=== PATIENT | female | born 1960 | race Caucasian/White ===

== ENCOUNTER 2016-08-11 07:52 | Emergency (ER) | payer BC ==
[~2016-08-11] VITALS: Ht 165.1 cm; Wt 56.7 kg
[2016-08-11] MEDS ORDERED: ZITHROMAX250 MG PO (09:24)
== END 2016-08-11 09:42 | disposition home or self-care (01) ==
LOC: ED 07:52
DX: J40 Bronchitis, not specified as acute or chronic (principal); F17.200 Nicotine dependence, unspecified, uncomplicated; Z90.710 Acquired absence of both cervix and uterus; Z98.890 Other specified postprocedural states; Z88.0 Allergy status to penicillin

== ENCOUNTER 2017-07-06 16:17 | Emergency (ER) | payer BC ==
[~2017-07-06] VITALS: Ht 165.1 cm; Wt 61.2 kg
[~2017-07-06 16:17] MED LIST: ZITHROMAX250 MG PO
[2017-07-06 17:01] LABS: HEMATOCRIT 37.3 % (37.0-47.0); HEMOGLOBIN 12.3 g/dl (12.0-16.0); MEAN CELL VOLUME 98.2 fl (81.0-99.0); MEAN CORPUSCULAR HGB 32.4 pg (27.0-31.0); MEAN PLATELET VOLUME 9.1 fl (9.6-12.3); PLATELET COUNT AUTOMATED 293 10*3/uL (130-400); RED CELL DISTRI WIDTH 13.2 % (0-14.5); WHITE BLOOD COUNT 18.2 10*3/uL (4.8-10.8)
[2017-07-06 17:15] LABS: ALBUMIN 3.7 gm/dl (3.1-4.5); ALKALINE PHOSPHATASE 115 U/L (45-117); BUN 12 mg/dl (7-24); CHLORIDE 106 mmol/L (98-107); CREATININE 1.02 mg/dL (0.55-1.02); POTASSIUM 4.1 mmol/L (3.5-5.1); SGOT/AST 15 IU/L (3-35); SGPT/ALT 17 U/L (12-78); SODIUM 143 mmol/L (136-145); TOTAL PROTEIN 7.8 gm/dL (6.4-8.2)
[2017-07-06 17:24] LABS: INTERNATIONAL NORM RATIO 0.9 (2.0-3.5)
[2017-07-06 17:34] LABS: BASOPHILS 1 % (0-1); PLATELET SUFFICIENCY NORMAL (NORMAL); POLYCHROMASIA SLIGHT; TOTAL CELLS COUNTED 100 #CELLS
== END 2017-07-06 18:28 | disposition home or self-care (01) ==
LOC: ED 16:17 → EDSTATUS 16:17 → ED 18:28
PROVIDERS: Nurse Practitioner Family
DX: M79.605 Pain in left leg (principal); F17.200 Nicotine dependence, unspecified, uncomplicated; Z88.0 Allergy status to penicillin

== ENCOUNTER 2022-07-22 05:54 | Emergency (ER) | payer OTHER ==
[~2022-07-22] VITALS: Ht 162.5 cm; Wt 61.2 kg
[2022-07-22 06:38] LABS: HEMATOCRIT 42.1 % (37.0-47.0); MEAN CELL VOLUME 94.4 fl (81.0-99.0); MEAN CORPUSCULAR HGB 32.3 pg (27.0-31.0); MEAN CORPUSCULAR HGB CONC 34.2 g/dl (33.0-37.0); MEAN PLATELET VOLUME 9.7 fl (9.6-12.3); PLATELET COUNT AUTOMATED 183 10*3/uL (130-400); RED BLOOD COUNT 4.46 10*6/uL (4.10-5.10); RED CELL DISTRI WIDTH 12.8 % (0-14.5); WHITE BLOOD COUNT 23.1 10*3/uL (4.8-10.8)
[2022-07-22 06:39] LABS: MANUAL DIFF REFLEX YES
[2022-07-22 06:58] LABS: ALKALINE PHOSPHATASE 83 U/L (46-116); BUN 13 mg/dl (9-23); CHLORIDE 100 mmol/L (98-107); CREATININE 0.91 mg/dL (0.55-1.02); POTASSIUM 4.1 mmol/L (3.4-5.1); SGPT/ALT 9 U/L (10-49); TOTAL PROTEIN 7.9 gm/dL (6.0-8.0)
[2022-07-22 07:01] LABS: ATYPICAL LYMPHS 10 % (0-0); HOWELL-JOLLY BODIES FEW; PLATELET SUFFICIENCY NORMAL (NORMAL); POLYCHROMASIA SLIGHT; TOTAL CELLS COUNTED 100 #CELLS; VACUOLATION OF NEUTROPHILS SLIGHT
[2022-07-22] MEDS ORDERED: ZITHROMAX250 MG PO (11:07)
[2022-07-22] MEDS ORDERED: PREDNISONE50 MG PO (11:07)
== END 2022-07-22 11:23 | disposition home or self-care (01) ==
LOC: ED 05:54
PROVIDERS: Internal Medicine
DX: R05.9 Cough, unspecified (principal); Z20.822 Contact with and (suspected) exposure to COVID-19; R50.9 Fever, unspecified; R19.7 Diarrhea, unspecified; Z88.0 Allergy status to penicillin; Z90.710 Acquired absence of both cervix and uterus; Z90.49 Acquired absence of other specified parts of digestive tract

== ENCOUNTER → 2023-07-08 | Outpatient (CLI) | payer OTHER, MEDICAID ==
[~2023-07-08] MED LIST changes: +PREDNISONE50 MG PO
[2023-07-08 12:09] LABS: MEAN CELL VOLUME 100.7 fl (81.0-99.0); MEAN CORPUSCULAR HGB 32.1 pg (27.0-31.0); MEAN CORPUSCULAR HGB CONC 31.9 g/dl (33.0-37.0); MEAN PLATELET VOLUME 9.1 fl (9.6-12.3); RED BLOOD COUNT 4.17 10*6/uL (4.10-5.10); RED CELL DISTRI WIDTH 13.1 % (0-14.5); WHITE BLOOD COUNT 16.3 10*3/uL (4.8-10.8)
[2023-07-08 12:48] LABS: ALKALINE PHOSPHATASE 101 U/L (46-116); BUN 9 mg/dl (9-23); CHLORIDE 106 mmol/L (98-107); CHOLESTEROL 196 mg/dL (<200); LDL CHOLESTEROL 131 mg/dL (9-159); POTASSIUM 3.7 mmol/L (3.4-5.1); SGPT/ALT 15 U/L (5-49); TOTAL PROTEIN 8.6 gm/dL (6.0-8.0); TRIGLYCERIDES 77 mg/dl (<150)
[2023-07-08 12:51] LABS: VITAMIN D, 25-HYDROXY 42.5 ng/mL (30-100)
== END | disposition home or self-care (01) ==
LOC: LAB 11:53
PROVIDERS: ATTEND Family Medicine
DX: S22.31XA Fracture of one rib, right side, initial encounter for closed fracture (principal); U07.1 COVID-19; J43.9 Emphysema, unspecified; E55.9 Vitamin D deficiency, unspecified; E03.9 Hypothyroidism, unspecified; R53.83 Other fatigue; Z13.220 Encounter for screening for lipoid disorders; X58.XXXA Exposure to other specified factors, initial encounter; Y93.89 Activity, other specified; Y92.89 Other specified places as the place of occurrence of the external cause; Y99.8 Other external cause status

== ENCOUNTER → 2023-07-15 | Outpatient (CLI) | payer OTHER, MEDICAID ==
[2023-07-16 04:06] LABS: TOTAL PROTEIN, SERUM 8.2 g/dL (6.0-8.5)
[2023-07-19 12:06] LABS: A/G RATIO 0.9 (0.7-1.7); ALBUMIN 3.9 g/dL (2.9-4.4); ALPHA-1-GLOBULIN 0.3 g/dL (0.0-0.4); ALPHA-2-GLOBULIN 0.8 g/dL (0.4-1.0); BETA GLOBULIN 0.9 g/dL (0.7-1.3); GAMMA GLOBULIN 2.3 g/dL (0.4-1.8); GLOBULIN, TOTAL 4.3 g/dL (2.2-3.9); M-SPIKE 1.8 g/dL (Not Observed)
[2023-07-20 13:06] LABS: ALBUMIN, URINE 17.4 % (.); ALPHA-1-GLOBULIN, URINE 6.8 % (.); ALPHA-2-GLOBULIN, URINE 14.3 % (.); GAMMA GLOBULIN, URINE 39.5 % (.); M-SPIKE, % 13.6 % (Not Observed); PROTEIN,TOTAL - URINE RANDOM 5.6 mg/dL (Not Estab.)
== END | disposition home or self-care (01) ==
LOC: LAB 13:10
PROVIDERS: ATTEND Family Medicine
DX: E88.09 Other disorders of plasma-protein metabolism, not elsewhere classified (principal)

== ENCOUNTER → 2024-01-11 | Outpatient (CLI) | payer OTHER, MEDICAID | END | disposition home or self-care (01) | LOC: LAB 12:33 | PROVIDERS: ATTEND Family Medicine | DX: R19.7 Diarrhea, unspecified (principal); R10.9 Unspecified abdominal pain; K59.00 Constipation, unspecified; R14.0 Abdominal distension (gaseous) ==

== ENCOUNTER → 2024-01-20 | Outpatient (CLI) | payer OTHER, MEDICAID ==
[2024-01-20 12:18] LABS: HEMATOCRIT 38.9 % (37.0-47.0); MEAN CORPUSCULAR HGB 32.3 pg (27.0-31.0); MEAN CORPUSCULAR HGB CONC 32.6 g/dl (33.0-37.0); MEAN PLATELET VOLUME 9.6 fl (9.6-12.3); RED BLOOD COUNT 3.93 10*6/uL (4.10-5.10); RED CELL DISTRI WIDTH 13.4 % (0-14.5)
[2024-01-20 12:29] LABS: WHITE BLOOD COUNT 25.4 10*3/uL (4.8-10.8)
[2024-01-20 12:40] LABS: ALKALINE PHOSPHATASE 88 U/L (46-116); BUN 7 mg/dl (9-23); CHLORIDE 111 mmol/L (98-107); POTASSIUM 3.9 mmol/L (3.4-5.1); SGPT/ALT 9 U/L (5-49); TOTAL PROTEIN 7.6 gm/dL (6.0-8.0)
== END | disposition home or self-care (01) ==
LOC: LAB 11:31
PROVIDERS: ATTEND Family Medicine
DX: C95.90 Leukemia, unspecified not having achieved remission (principal); I89.0 Lymphedema, not elsewhere classified; A04.72 Enterocolitis due to Clostridium difficile, not specified as recurrent